=== PATIENT | female | born 1970 | race Caucasian/White ===

== ENCOUNTER 2024-03-30 08:59 | Outpatient (CLI) | payer BC | END 2024-03-30 23:59 | disposition home or self-care (01) | LOC: CARD DIAG 08:59 | PROVIDERS: ATTEND Family Medicine | DX: I08.0 Rheumatic disorders of both mitral and aortic valves (principal); I10 Essential (primary) hypertension; R01.1 Cardiac murmur, unspecified | CPT/HCPCS: 93306 ==

== ENCOUNTER 2024-10-28 09:10 | Emergency (ER) | payer BC ==
[~2024-10-28] VITALS: Ht 167.6 cm; Wt 74.8 kg
[2024-10-28 09:12] VITALS: BP 183/11; PULSE 97; RESP 18; O2SAT 98
[2024-10-28] MEDS ORDERED: PERM60CR27 TOP (09:24)
--- NOTE | 2024-10-28 09:25 | Physician Documentation ---
History of Present Illness ~ Chief Complaint: Rash Stated Complaint: POSS SCABIES Time Seen by MD: 09:18 OK to notify your PCP?: Yes Source: patient Mode of Arrival: POV Exam Limitations: no limitations HPI 54-year-old female who is here due to itchy rash on her lower extremities which she states started a few days ago. 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 Patient states the itching is constant she is not sure if it is worse at night. She denies any other symptoms including fever, chills, pain, swelling, nausea, shortness of breath. Medication Reconciliation Allergies: Coded Allergies: acetaminophen (Unverified Allergy, Unknown, 10/28/24) oxycodone (Unverified Allergy, Unknown, 10/28/24) Past Medical History Past Medical History: No Pertinent History Review of Systems All Other Systems at this time: Reviewed and Negative Physical Exam Vital Signs: Temperature: 97.7, Source: Temporal, Heart Rate: 97, Respiratory Rate: 18, BP: 183/11, Pulse Oximetry: 98, Weight: 74.800 Oxygen Flow Rate: 0 Physical Exam Skin: Erythematous excoriations on lower extremities bilaterally from ankle to tibial tuberosity area, no pustules, papules. Patient is actively scratching lower extremities during exam. No LE edema. Pedal pulses 2+ General Appearance: Alert, WD/WN. NAD. HEENT: NCAT, PERRL, EOMI. Neck: Supple, trachea midline. Lungs: Breathing unlabored Neurological: Alert and oriented x4, normal gait. Psychiatric: Affect congruent with mood. Progress Results/Orders Results/Orders Vital Signs 10/28/24 09:12 Temp 97.7 Pulse 97 Resp 18 B/P (MAP) 183/11 Pulse Ox 98 O2 Flow Rate 0 Medical Decision Making Differential Dx:Considerations: Include: Abscess, AIDS/HIV, Anthrax (cutaneous), Atopic dermatitis, Candidiasis, Contact dermatitis, Drug reaction, Erythema multiforme, Erysipelas, Gangrene, Herpes zoster, Herpes simplex, Hidradenitis suppurativa, Impetigo, Intertrigo, Lymes disease, Molluscum contagiosum, Osteomyelitis, Pediculosis, Pityriasis rosea, Psoriaisis, RMSF, Rosacea, Scabies, Scarlet fever, Tinea, Urticaria, Varicella, Viral exanthema Departure Time of Disposition: 09:23 Disposition: 01 HOME / SELF CARE / HOMELESS Impression: Primary Impression: Scabies exposure Additional Impression: Pruritic rash Condition: Stable Discharge Instructions: Scabies, Adult Additional Instructions: APPLY CREAM FROM CHIN TO TOES LEAVE ON FOR 10HOURS, THEN RINSE AND REPEAT IN 7DAYS WASH BEDDING/CLOTHING ANYTHING THAT CAN NOT BE WASHED PUT IN TRASH BAG AND LEAVE IN THERE FOR 72HOURS Referrals: NO PRIMARY CARE PROVIDER (PCP) Prescriptions Permethrin 5% Cream* (Elimite 5% Cream*) 60 Gm Cream.gm. 1 APPLIC TOP ONCE, #60 GM massage into skin from head to soles of feet one time, leave on for 8-14 hours then remove by thorough washing. REPEAT IN 7DAYS Prov: TOM OVIEDO 10/28/24 Education Educated: Patient Educated regarding: diagnosis, treatment, need for follow up Signature Scribe Signature: X Attestation: TOM MURILLO Oct 28, 2024 09:25
[2024-10-28 09:31] VITALS: TEMP 97.7
== END 2024-10-28 09:33 | disposition home or self-care (01) ==
LOC: ER 09:10
DX: B86 Scabies (principal); L29.9 Pruritus, unspecified; Z88.5 Allergy status to narcotic agent
CPT/HCPCS: 99282; 99283